=== PATIENT | female | born 1980 | race Caucasian/White ===

== ENCOUNTER 2021-01-25 02:27 | Emergency (ER) | payer OTHER ==
[~2021-01-25 02:27] MED LIST: BACTRIM DS TAB1 EACH PO; CIPRO500 MG PO; CYCLOBENZAPRINE10 MG PO; FLOMAX 0.4 MG0.4 MG PO; NAPROXEN500 MG PO; NORCO 5-325 TA1 EACH PO; PREDNISONE 20MG20 MG PO; PYRIDIUM200 MG PO
[2021-01-25 02:56] LABS: BILIRUBIN NEGATIVE (NEGATIVE); BLOOD NEGATIVE Ery/uL (NEGATIVE); CLARITY CLEAR (CLEAR); COLOR YELLOW (YELLOW); GLUCOSE (U) NORMAL (NORMAL); LEUKOCYTES NEGATIVE Leu/uL (NEGATIVE); NITRITE NEGATIVE (NEGATIVE); PROTEIN NEGATIVE (NEGATIVE); UROBILINOGEN 0.2 mg/dL (0.2-1.0)
[2021-01-25 03:22] LABS: BASOPHIL 0.5 % (0-2); EOSINOPHIL 1.5 % (0-5); HCT 39.8 % (37.0-47.0); HGB 13.6 g/dl (12.5-16.0); MCH 30.4 pg (25.0-31.0); MCHC 34.2 g/dL (32.0-36.0); MONOCYTE 5.9 % (0-12); MPV 9.9 fL (6.0-9.5); NEUTROPHIL 67.8 % (41-80); NRBC 0; PLT 311 K/uL (150-400); RBC 4.47 M/uL (4.20-5.40); RDW 13.1 % (11.5-14.0); WBC 13.4 K/uL (4.0-10.5)
[2021-01-25 03:39] LABS: ALBUMIN 3.3 g/dL (3.4-5.0); BILIRUBIN - TOTAL 0.2 mg/dL (0.2-1.0); BUN/CREAT RATIO (CALC) 14.9 RATIO; CREATININE 0.67 mg/dL (0.51-0.95); GLOBULIN (CALCULATION) 3.6 g/dL; POTASSIUM 3.4 mmol/L (3.5-5.1); TOTAL PROTEIN 6.9 g/dL (6.4-8.2)
[2021-01-25] MEDS ORDERED: DICLOFENAC SODI75 MG PO (03:45)
== END 2021-01-25 04:05 | disposition home or self-care (01) ==
LOC: FER 02:27
PROVIDERS: Emergency Medicine
DX: R09.1 Pleurisy (principal); R10.12 Left upper quadrant pain; F17.210 Nicotine dependence, cigarettes, uncomplicated; Z98.51 Tubal ligation status
CPT/HCPCS: 36415; 71045; 80053; 81003; 82150; 83690; 84484; 85025; 93005; J1885; J2930

== ENCOUNTER 2021-03-02 14:55 | Emergency (ER) | payer OTHER ==
[~2021-03-02 14:55] MED LIST changes: +DICLOFENAC SODI75 MG PO
[2021-03-02 16:40] LABS: BASOPHIL 0.7 % (0-2); EOSINOPHIL 2.1 % (0-5); HCT 40.7 % (37.0-47.0); HGB 13.8 g/dl (12.5-16.0); LYMPHOCYTE 25.3 % (15-48); MCH 30.6 pg (25.0-31.0); MCHC 33.9 g/dL (32.0-36.0); MCV 90.2 fL (78.0-100.0); MPV 10.6 fL (6.0-9.5); NEUTROPHIL 66.6 % (41-80); NRBC 0; PLT 269 K/uL (150-400); RBC 4.51 M/uL (4.20-5.40); RDW 13.1 % (11.5-14.0); WBC 10.6 K/uL (4.0-10.5)
[2021-03-02] MEDS ORDERED: NAPROXEN500 MG PO (16:53)
[2021-03-02 17:00] LABS: CREATININE 0.5 mg/dL (0.51-0.95)
== END 2021-03-02 17:20 | disposition home or self-care (01) ==
LOC: FER 14:55
PROVIDERS: Nurse Practitioner Family
DX: S66.912A Strain of unspecified muscle, fascia and tendon at wrist and hand level, left hand, initial encounter (principal); F17.210 Nicotine dependence, cigarettes, uncomplicated; X50.9XXA Other and unspecified overexertion or strenuous movements or postures, initial encounter
CPT/HCPCS: 36415; 73110; 80048; 85025; 96372; J1100; J1885